=== PATIENT | male | born 1995 | race Caucasian/White ===

== ENCOUNTER 2025-06-09 02:34 | Emergency (ER) | payer OTHER ==
[~2025-06-09] VITALS: Ht 167.6 cm; Wt 100.0 kg
[~2025-06-09 02:34] MED LIST: NOCURR
[2025-06-09] MEDS ORDERED: METH4TAB3 PO (03:26)
[2025-06-09] MEDS: DEXAMETHASONE SOD PHOS 4 MG/ML 5 ML VIAL IM ONE (03:43)
[2025-06-09] MEDS: KETOROLAC TROMETHAMINE 60 MG/2 ML VIAL IM ONE (03:43)
[2025-06-09 03:55] VITALS: BP 135/96; PULSE 89; RESP 14; TEMP 97.3; O2SAT 98
== END 2025-06-09 04:09 | disposition home or self-care (01) ==
LOC: EMS 02:35
DX: M54.10 Radiculopathy, site unspecified (principal); M54.31 Sciatica, right side; Z98.890 Other specified postprocedural states; Z79.899 Other long term (current) drug therapy
CPT/HCPCS: 99284; 96372; J1885; J1100